=== PATIENT | male | born 1955 | race Hispanic/Latino ===

== ENCOUNTER 2018-06-04 11:19 | Emergency (ER) | payer MEDICARE, MEDICAID ==
[~2018-06-04] VITALS: Ht 167.6 cm; Wt 95.9 kg
[2018-06-04] MEDS ORDERED: [UNRECOGNIZED DRUG - REMARK] (11:32)
[2018-06-04] MEDS ORDERED: LAMICTAL200 M1 PO (11:33)
[2018-06-04 11:43] LABS: HEMATOCRIT 42.9 % (39.0-50.0); IMMATURE GRANULOCYTES 0.5 % (0.0-5.0); MEAN CELL VOLUME 85.6 fL CALC (80.0-100.0); MEAN CORPUSCULAR HGB 27.9 pG CALC (26.0-32.0); MEAN CORPUSCULAR HGB CONC 32.6 g/L CALC (32.0-36.0); NEUT# 5.65 thou/uL (1.82-7.42); RED BLOOD COUNT 5.01 mill/uL (4.70-6.10); RED CELL DISTRI WIDTH 13.8 % (11.5-15.5)
[2018-06-04 12:04] LABS: ALBUMIN 4.4 g/dL (3.2-5.0); ALKALINE PHOSPHATASE 103 u/l (38-126); ANION GAP 18 (6-22 (CALC)); BILIRUBIN, TOTAL 0.4 mg/dL (0.0-1.4); BUN 14 mg/dL (8-23); BUN/CREATININE RATIO 19 (12-20 (CALC)); CARBON DIOXIDE 24 mmol/l (22-30); CHLORIDE 104 mmol/l (95-108); CREATININE 0.8 mg/dL (0.7-1.3); GFR > 60 ML/MIN (>=60 (CALC)); GFR FOR AFR.AMER. > 60 ML/MIN (>=60 (CALC)); POTASSIUM 4.2 mmol/l (3.5-5.1); SGOT/AST 23 u/l (19-48); SGPT/ALT 35 u/l (11-66); SODIUM 141 mmol/l (137-146); TOTAL PROTEIN 7.7 g/dL (6.3-8.2)
[2018-06-04 12:37] VITALS: BP 115/63
== END 2018-06-04 12:42 | disposition home or self-care (01) ==
LOC: ED 11:19
PROVIDERS: Emergency Medicine
DX: G40.909 Epilepsy, unspecified, not intractable, without status epilepticus (principal)

== ENCOUNTER 2019-04-19 20:50 | Emergency (ER) | payer MEDICARE, MEDICAID ==
[~2019-04-19] VITALS: Ht 167.6 cm; Wt 100.0 kg
[~2019-04-19 20:50] MED LIST: LAMICTAL200 M1 PO; [UNRECOGNIZED DRUG - REMARK]
[2019-04-19] MEDS ORDERED: AMOXICILLIN/CL875 MG PO (21:49)
[2019-04-19 22:00] VITALS: BP 132/80
== END 2019-04-19 22:00 | disposition home or self-care (01) ==
LOC: ED 20:50
DX: S71.152A Open bite, left thigh, initial encounter (principal); W54.0XXA Bitten by dog, initial encounter; Y92.009 Unspecified place in unspecified non-institutional (private) residence as the place of occurrence of the external cause

== ENCOUNTER 2020-02-23 17:58 | Emergency (ER) | payer MEDICARE, MEDICAID ==
[~2020-02-23 17:58] MED LIST changes: +AMOXICILLIN/CL875 MG PO
[2020-02-23 18:29] LABS: HEMATOCRIT 38.6 % (39.0-50.0); HEMOGLOBIN 12.8 g/dl (14.0-18.0); IMMATURE GRANULOCYTES 0.2 % (0.0-5.0); MEAN CELL VOLUME 83.7 fL CALC (80.0-100.0); MEAN CORPUSCULAR HGB 27.8 pG CALC (26.0-32.0); MEAN CORPUSCULAR HGB CONC 33.2 g/dL CAL (32.0-36.0); NEUT# 4.24 thou/uL (1.82-7.42); RED BLOOD COUNT 4.61 mill/uL (4.70-6.10)
[2020-02-23] MEDS ORDERED: LEVETIRACETAM500 M1 PO (18:37)
[2020-02-23 18:38] VITALS: BP 109/66
[2020-02-23 18:46] LABS: ALBUMIN 4.1 g/dL (3.2-5.0); ALKALINE PHOSPHATASE 67 u/l (38-126); ANION GAP 14 (6-22 (CALC)); BILIRUBIN, TOTAL 0.5 mg/dL (0.0-1.4); BUN 15 mg/dL (8-23); BUN/CREATININE RATIO 19 (12-20 (CALC)); C-REACTIVE PROTEIN 2.9 mg/dL (0-0.9); CARBON DIOXIDE 23 mmol/l (22-30); CHLORIDE 101 mmol/l (95-108); CREATININE 0.8 mg/dL (0.7-1.3); GFR > 60 ML/MIN (>=60 (CALC)); GFR FOR AFR.AMER. > 60 ML/MIN (>=60 (CALC)); LIPASE 154 u/l (23-300); POTASSIUM 3.7 mmol/l (3.5-5.1); SGOT/AST 39 u/l (19-48); SODIUM 134 mmol/l (137-146); TOTAL PROTEIN 7.3 g/dL (6.3-8.2)
[2020-02-23 19:16] LABS: URINE BLOOD DIPSTICK TRACE-INTACT (NEGATIVE); URINE GLUCOSE - DIPSTICK NEGATIVE (NEGATIVE); URINE KETONE TRACE mg/dL (NEGATIVE); URINE LEUK ESTERASE NEGATIVE (NEGATIVE); URINE PROTEIN - DIPSTICK >=300 mg/dL (NEG-TRACE); URINE SPECIFIC GRAVITY >=1.030
[2020-02-23 19:17] LABS: URINE BILIRUBIN - DIPSTICK NEGATIVE (NEGATIVE); URINE COLOR AMBER; URINE NITRITE - DIPSTICK POSITIVE (Negative)
[2020-02-23 19:25] LABS: URINE BACTERIA MANY hpf
[2020-02-23] MEDS ORDERED: ROBITUSSIN AC10 ML PO (20:23)
[2020-02-23] MEDS ORDERED: AMOXICILLIN500 MG PO (20:23)
== END 2020-02-23 21:15 | disposition home or self-care (01) ==
LOC: ED 17:58
PROVIDERS: Family Medicine
DX: U07.1 COVID-19 (principal); J02.0 Streptococcal pharyngitis; N39.0 Urinary tract infection, site not specified; B96.89 Other specified bacterial agents as the cause of diseases classified elsewhere; G40.909 Epilepsy, unspecified, not intractable, without status epilepticus

== ENCOUNTER 2020-02-28 09:42 | Emergency (ER) | payer MEDICARE, MEDICAID ==
[~2020-02-28 09:42] MED LIST changes: +AMOXICILLIN500 MG PO; +LEVETIRACETAM500 M1 PO; +ROBITUSSIN AC10 ML PO
--- NOTE | 2020-02-28 10:25 | NUR ---
RECEIVD PT ON NON REBREATHER SO2 66%. PLACED PT ON BIPAP POST CRITICAL PO2 ON ABG. SETTINGS 20/8 100%. [id number]% REPEAT ABG ORDERED IN ONE HR. DR. VARMA AWARE [id number] ARE IN.
[2020-02-28 10:43] LABS: HEMATOCRIT 43.3 % (39.0-50.0); HEMOGLOBIN 14.2 g/dl (14.0-18.0); IMMATURE GRANULOCYTES 0.9 % (0.0-5.0); MEAN CELL VOLUME 83.9 fL CALC (80.0-100.0); MEAN CORPUSCULAR HGB 27.5 pG CALC (26.0-32.0); MEAN CORPUSCULAR HGB CONC 32.8 g/dL CAL (32.0-36.0); NEUT# 9.81 thou/uL (1.82-7.42); RED BLOOD COUNT 5.16 mill/uL (4.70-6.10); RED CELL DISTRI WIDTH 14.1 % (11.5-15.5)
[2020-02-28 11:00] LABS: ACT PARTIAL THROMBO TIME 37.8 SECONDS (20.0-32.5); INTERNATIONAL NORMALIZED RATIO 1.3 RATIO (0.7-1.3); PROTHROMBIN TIME 13.5 SECONDS (9.0-12.5)
[2020-02-28 11:02] LABS: ALBUMIN 3.6 g/dL (3.2-5.0); ALKALINE PHOSPHATASE 66 u/l (38-126); BUN 16 mg/dL (8-23); BUN/CREATININE RATIO 20 (12-20 (CALC)); CARBON DIOXIDE 21 mmol/l (22-30); CHLORIDE 98 mmol/l (95-108); CREATININE 0.8 mg/dL (0.7-1.3); GFR > 60 ML/MIN (>=60 (CALC)); GFR FOR AFR.AMER. > 60 ML/MIN (>=60 (CALC)); SODIUM 135 mmol/l (137-146)
[2020-02-28 11:33] LABS: ANION GAP 21 (6-22 (CALC)); POTASSIUM 4.6 mmol/l (3.5-5.1); SGOT/AST 128 u/l (19-48)
[2020-02-28 14:50] VITALS: BP 101/71
== END 2020-02-28 15:25 | disposition short-term general hospital (02) ==
LOC: ED 09:42
PROVIDERS: Student in an Organized Health Care Education/Training Program
PROC: 5A09357 Assistance with Respiratory Ventilation, Less than 24 Consecutive Hours, Continuous Positive Airway Pressure (ICD-10-PCS; principal; 2020-02-28)
DX: A41.89 Other specified sepsis (principal); U07.1 COVID-19; J12.89 Other viral pneumonia; R65.20 Severe sepsis without septic shock; J96.01 Acute respiratory failure with hypoxia; G40.909 Epilepsy, unspecified, not intractable, without status epilepticus
CPT/HCPCS: J3475